=== PATIENT | female | born 1940 | race Caucasian/White ===

== ENCOUNTER 2016-02-25 11:26 | Day surgery (SDC) | payer MEDICARE ==
[~2016-02-25 11:26] MED LIST: CILO100T PO; CLOB-50; CLOP75TA PO; CYAN2500 PO; D31000CA PO; DEXI60CA3 PO; DICY10CA13 PO; DONE10TA14; FLOV44AE IN; FURO10S PO; LEVO125T3 PO; LINA145C PO; LITH300 PO; MAGN250T5 PO; METH1INJ18; NAME10TA PO; PRAV10 PO; PRIM50TA PO; SERT-132 PO; SUCR1S PO; VITA50TA3 PO
[2016-02-25] MEDS ORDERED: NS 1000 ML IV SCH (12:00)
[2016-02-25] MEDS ORDERED: MUPIROCIN 2% OINT 1 APPLIC/GM SYR NASAL SCH (12:00)
[2016-02-25] MEDS ORDERED: ceFAZolin 2 GM PREMIX 50 ML IV SCH (12:15)
[2016-02-25] MEDS ORDERED: POVIDONE IODINE 5% (ANTISEPSIS KIT) 4 APPLICATIONS EACH NARE SCH (12:15)
[2016-02-25] MEDS ORDERED: CHLORHEXIDINE GLUCONATE 2 % 1 PACK (2 CLOTHS) TOP SCH (12:15)
[2016-02-25] MEDS ORDERED: MIDAZOLAM HCL 5 MG/5 ML VIAL ONE (12:24)
[2016-02-25] MEDS ORDERED: PLAV75TA29 PO (12:48)
[2016-02-25] MEDS ORDERED: SULF500T3 PO (12:48)
[2016-02-25] MEDS ORDERED: ESTR.3 PO (12:48)
[2016-02-25] MEDS ORDERED: FURO1TAB60 PO (12:48)
[2016-02-25] MEDS ORDERED: HYDR-4204 TOPICAL (12:48)
[2016-02-25] MEDS ORDERED: KETOC2%T TOPICAL (12:48)
[2016-02-25] MEDS ORDERED: BIOT10TA PO (12:48)
[2016-02-25] MEDS ORDERED: PRIM50TA5 PO (12:48)
[2016-02-25] MEDS ORDERED: MEMA1TAB2 PO (12:48)
[2016-02-25] MEDS ORDERED: POTA-163 PO (12:48)
[2016-02-25] MEDS ORDERED: FOLI5CAP PO (12:48)
[2016-02-25] MEDS ORDERED: RIVA3CAP PO (12:48)
[2016-02-25] MEDS ORDERED: ESTR42.5V VAGINAL (12:48)
[2016-02-25] MEDS ORDERED: FERR1TAB36 PO (12:48)
[2016-02-25] MEDS ORDERED: ALPR0.5T3 PO (12:48)
[2016-02-25] MEDS ORDERED: DESO0.053 TOPICAL (12:48)
[2016-02-25] MEDS ORDERED: AZIT250T3 PO (12:48)
[2016-02-25] MEDS ORDERED: OMEP20TA PO (12:48)
[2016-02-25] MEDS ORDERED: LEVO125T4 PO (12:48)
[2016-02-25] MEDS ORDERED: VITA10004 PO (12:48)
[2016-02-25] MEDS ORDERED: CLOB-23 TOPICAL (12:48)
[2016-02-25] MEDS ORDERED: MUCI30TA2 PO (12:48)
[2016-02-25] MEDS ORDERED: PRAV10TA PO (12:48)
[2016-02-25] MEDS ORDERED: ESSE250T (12:48)
[2016-02-25] MEDS ORDERED: LAMO100T68 PO (12:48)
--- NOTE | 2016-02-25 15:11 | MA ---
cc: ANTON LOGAN MD DATE: 02/25/2016 PROCEDURE: Loop recorder insertion REFERRING PHYSICIAN Dr. Anton Logan PREPROCEDURE DIAGNOSIS Question of atrial fibrillation. POSTPROCEDURE DIAGNOSIS Successful loop recorder insertion. DESCRIPTION OF PROCEDURE The patient was brought to the DOC unit in the postabsorptive state after informed consent was obtained a [employer] reveal link loop recorder was inserted subcutaneously to the left chest. The patient tolerated the procedure well without any apparent complications. Tachybrady pause and atrial fibrillation detection was enabled. The initial R-wave was 0.55 mV. The serial number was [id number]. MD MARLON Powell/tyree /2:42 PM /3:02 PM
== END 2016-02-25 14:48 | disposition home or self-care (01) ==
LOC: HDOC 11:26 → HDIC 11:27 → HDOC 14:48
PROVIDERS: ATTEND Nuclear Medicine Nuclear Cardiology
DX: R00.2 Palpitations (principal); I11.9 Hypertensive heart disease without heart failure; I49.9 Cardiac arrhythmia, unspecified; I95.1 Orthostatic hypotension
CPT/HCPCS: 33282; C1764; J0690; J2250; J3010; J7030